=== PATIENT | female | born 1980 | race American Indian/Alaskan Native ===

== ENCOUNTER 2017-06-21 05:52 | Emergency (ER) | payer MEDICAID ==
[2017-06-21 05:52] VITALS: BMI 27.4
[2017-06-21 06:08] VITALS: TEMP 98.1
--- NOTE | 2017-06-21 06:18 | C.PDOC ---
History Of Present Illness Patient with a Hx of bone CA presents to the ER with a complaint of diffuse itching that began 30 minutes [employer], trigger is unknown. Patient is currently speaking in complete sentences and is able to tolerate PO. Denies fever or chills. Time Seen by Provider: 06/21/17 06:15 Chief Complaint (Nursing): Allergic Reaction History Per: Patient History/Exam Limitations: no limitations Onset/Duration Of Symptoms: Mins, Sudden Onset Current Symptoms Are (Timing): Still Present Possible Cause: Unknown Associated Symptoms: Skin Rash, Itching Home/EMS Treatment: None Severity: Mild Pain Scale Rating Of: 2 Recent travel outside of the [place]: No Past Medical History Reviewed: Historical Data, Nursing Documentation, Vital Signs Vital Signs: Last Vital Signs Temp 98.1 F 06/21/17 06:02 Pulse 100 H 06/21/17 06:02 Resp 20 06/21/17 06:02 BP 108/72 06/21/17 06:02 Pulse Ox 99 06/21/17 06:25 - Medical History PMH: Hypercholesterolemia, Migraine, Seizures Surgical History: No Surg Hx Family History: States: Unknown Family Hx - Social History Hx Tobacco Use: No Hx Alcohol Use: No Hx Substance Use: No Review Of Systems Constitutional: Negative for: Fever, Chills ENT: Negative for: Mouth Swelling, Throat Swelling Skin: Positive for: Rash Physical Exam - Physical Exam Appears: Non-toxic, No Acute Distress Skin: Warm, Dry, Rash (Diffuse mild urticaria) Head: Normacephalic Eye(s): bilateral: Normal Inspection Oral Mucosa: Moist Tongue: Normal Appearing Lips: Normal Appearing Neck: Supple Chest: Symmetrical Cardiovascular: Rhythm Regular Respiratory: No Rales, No Rhonchi, No Stridor, No Wheezing Gastrointestinal/Abdominal: Soft, No Tenderness Extremity: Normal ROM Extremity: Bilateral: Atraumatic Neurological/Psych: Oriented x3, Normal Speech, Normal Cognition Gait: Steady ED Course And Treatment O2 Sat by Pulse Oximetry: 99 (Room air) Pulse Ox Interpretation: Normal Progress Note: Benadryl, pepcid, solumedrol, and IV fluids administered. Disposition Counseled Patient/Family Regarding: Studies Performed, Diagnosis - Disposition Disposition Time: 06:15 Condition: FAIR Forms: [facility] (Yi) - Clinical Impression Clinical Impression: Allergic reaction - Scribe Statement The provider has reviewed the documentation as recorded by the Scribe Everardo Caba All medical record entries made by the Scribe were at my direction and personally dictated by me. I have reviewed the chart and agree that the record accurately reflects my personal performance of the history, physical exam, medical decision making, and the department course for this patient. I have also personally directed, reviewed, and agree with the discharge instructions and disposition. Physician Patient Turnover Patient Signed Over To: Kerry Dangelo Handoff Comments: pending re-evaluation and dispostion
[2017-06-21] MEDS ORDERED: Sodium Chloride 0.9% 1,000 ML IV ONE ×2 (06:19)
[2017-06-21] MEDS ORDERED: DiphenhydrAMINE 50 mg/ml Inj IVP STA (06:19)
[2017-06-21] MEDS ORDERED: Sodium Chloride 0.9% 1,000 ML ONE (06:35)
[2017-06-21] MEDS ORDERED: DiphenhydrAMINE 50 mg/ml Inj ONE (06:36)
[2017-06-21 07:26] VITALS: BP 106/68; PULSE 90; RESP 18; O2SAT 98
== END 2017-06-21 08:01 | disposition home or self-care (01) ==
LOC: C.ER 05:52
DX: L50.0 Allergic urticaria (principal)
CPT/HCPCS: 96374; 96375; 99284; J1200; J2930; J7040

== ENCOUNTER 2017-12-21 04:23 | Emergency (ER) | payer MEDICAID ==
[2017-12-21 04:23] VITALS: BMI 27.4
--- NOTE | 2017-12-21 04:53 | C.PDOC ---
Chief Complaint (Nursing): Lower Extremity Problem/Injury Past Medical History Vital Signs: Last Vital Signs Temp 98 F 12/21/17 04:37 Pulse 82 12/21/17 04:37 Resp 20 12/21/17 04:37 BP 102/70 12/21/17 04:37 Pulse Ox 98 12/21/17 04:52 - Medical History PMH: Hypercholesterolemia, Migraine, Seizures Family History: States: Unknown Family Hx - Social History Hx Tobacco Use: No Hx Alcohol Use: No Hx Substance Use: No - Immunization History Hx Tetanus Toxoid Vaccination: No Hx Influenza Vaccination: No Hx Pneumococcal Vaccination: No ED Course And Treatment O2 Sat by Pulse Oximetry: 98 Disposition Counseled Patient/Family Regarding: Diagnosis - Disposition Referrals: [facility] [Outside] Disposition: HOME/ ROUTINE Disposition Time: 04:59 Condition: STABLE Instructions: Amputation, [id number] Forms: [facility] (North Korean) - POA Present On Arrival: None - Clinical Impression Clinical Impression: Leg pain, right, Amputee of extremity
[2017-12-21 05:29] VITALS: BP 104/73; PULSE 85; RESP 19; TEMP 97.8; O2SAT 100
== END 2017-12-21 05:40 | disposition home or self-care (01) ==
LOC: C.ER 04:23
DX: M79.604 Pain in right leg (principal); Z89.511 Acquired absence of right leg below knee
CPT/HCPCS: 96372; 99284; J1885

== ENCOUNTER 2018-01-01 04:26 | Emergency (ER) | payer MEDICAID ==
[2018-01-01 04:27] VITALS: BMI 27.4
[2018-01-01 04:41] VITALS: O2SAT 100
[2018-01-01] MEDS ORDERED: Sodium Chloride 0.9% 1,000 ML IV ONE (04:57)
--- NOTE | 2018-01-01 04:58 | C.PDOC ---
History Of Present Illness 37yo female, with history of bone cancer and currently s/p right AKA at age 16, presents to the ED for evaluation of a headache which has been continuous for the past 4 days. Patient reports she has a history of migraines as well and states the headache is pressure like, in her bilateral frontal head and associated with light sensitivity and vomiting. Patient states the pain was of slow onset and not the worst of her life. She denies any neck stiffness, fever, rashes. She has no other medical complaints. Time Seen by Provider: 01/01/18 04:50 Chief Complaint (Nursing): Headache History Per: Patient History/Exam Limitations: no limitations Onset/Duration Of Symptoms: Days (4) Current Symptoms Are (Timing): Still Present Severity: Moderate Quality: Pressure Associated Symptoms: Photophobia Past Medical History Reviewed: Historical Data, Nursing Documentation, Vital Signs Vital Signs: Last Vital Signs Temp 97.9 F 01/01/18 05:32 Pulse 73 01/01/18 05:32 Resp 18 01/01/18 05:32 BP 104/69 01/01/18 05:32 Pulse Ox 100 01/01/18 05:45 - Medical History PMH: Hypercholesterolemia, Malignancy (bone), Migraine, Seizures Other Surgeries: right AKA Family History: States: Unknown Family Hx - Social History Hx Tobacco Use: No Hx Alcohol Use: No Hx Substance Use: No - Immunization History Hx Tetanus Toxoid Vaccination: No Hx Influenza Vaccination: No Hx Pneumococcal Vaccination: No Review Of Systems Except As Marked, All Systems Reviewed And Found Negative. Constitutional: Negative for: Fever, Chills Eyes: Positive for: Vision Change (photophobia) Musculoskeletal: Negative for: Neck Pain Neurological: Positive for: Headache Physical Exam - Physical Exam Appears: Non-toxic, No Acute Distress Skin: Normal Color, Warm, Dry Head: Atraumatic, Normacephalic Eye(s): bilateral: Normal Inspection, PERRL, EOMI Nose: Normal Oral Mucosa: Moist Throat: Normal Neck: Normal ROM, Supple, Other (no neck stiffness) Cardiovascular: Rhythm Regular Respiratory: Normal Breath Sounds, No Wheezing Gastrointestinal/Abdominal: Normal Exam, Soft, No Tenderness Extremity: Normal ROM, No Deformity, No Swelling Neurological/Psych: Oriented x3, Normal Speech, Normal Cognition, Normal Cranial Nerves, Normal Motor, Normal Sensation, Other (Negative Kernig's and negative brudzinski's ) ED Course And Treatment O2 Sat by Pulse Oximetry: 100 (RA) Pulse Ox Interpretation: Normal Medical Decision Making Medical Decision Making: Impression: Migraine headache Plan: -- IV Fluids -- Toradol 30 mg IVP -- Compazine 10 mg IVP Time: 0540 Upon reevaluation, patient reports marked improvement in pain. Stable for discharge home, instructed to follow up with PCP in 2-3 days. Disposition - Disposition Referrals: [facility] at [facility] [Outside] Disposition: HOME/ ROUTINE Disposition Time: 06:14 Condition: FAIR Prescriptions: Acetaminophen/Butalbital/Caf [Fioricet] 1 tab PO TID #12 tab Instructions: Migraine Headaches in Adults Forms: [facility] (Mongolian) Print Language: GEORGIAN - Clinical Impression Clinical Impression: Headache - Scribe Statement The provider has reviewed the documentation as recorded by the Scribe (Slime Cavazos) Provider Attestation: All medical record entries made by the Scribe were at my direction and personally dictated by me. I have reviewed the chart and agree that the record accurately reflects my personal performance of the history, physical exam, medical decision making, and the department course for this patient. I have also personally directed, reviewed, and agree with the discharge instructions and disposition.
[2018-01-01] MEDS ORDERED: Sodium Chloride 0.9% 1,000 ML ONE (05:08)
[2018-01-01 05:33] VITALS: BP 104/69; PULSE 73; RESP 18; TEMP 97.9
== END 2018-01-01 06:13 | disposition home or self-care (01) ==
LOC: C.ER 04:26
DX: R51 Headache (principal); E78.00 Pure hypercholesterolemia, unspecified
CPT/HCPCS: 96361; 96374; 96375; 99285; J0780; J1885; J7040